=== PATIENT | female | born 1945 | race Two or more races ===

== ENCOUNTER 2019-02-10 23:09 | Emergency (ER) | payer OTHER ==
[2019-02-10 23:21] VITALS: BP 186/92; PULSE 71; TEMP 98.4; BMI 42.5
[2019-02-11] MEDS ORDERED: ACETAMINOPHEN 325 MG TABLET (FP) PO ONE (00:22)
[2019-02-11] MEDS ORDERED: morphine CARPU-JECT 4 MG/1 ML DISP.SYRIN IVPUSH ONE (00:29)
[2019-02-11] MEDS ORDERED: CLINDAMYCIN 600MG PREMIX IVPB 600 MG/50 ML BAG IVPB ONE ×2 (00:30→00:48)
--- NOTE | 2019-02-11 00:48 | PDOC ---
History of Present Illness <Praveena Limon - Last Filed: 02/11/19 01:37> - General History Source: Patient, Family Exam Limitations: No Limitations <Kriss Phan - Last Filed: 02/11/19 01:54> - General Chief Complaint: Pain, Acute Stated Complaint: LEFT LEG PAIN Time Seen by Provider: 02/10/19 23:57 Past History <Praveena Limon - Last Filed: 02/11/19 01:37> - Past Medical History Cardiac Disorders: Yes COPD: No Diabetes: Yes HTN: Yes Hypercholesterolemia: Yes - Surgical History Cardiac Surgery: Yes (CARDIAC CATH) - Immunization History Immunization Up to Date: Yes - Suicide/Smoking/Psychosocial Hx Smoking Status: No Smoking History: Former smoker Have you smoked in the past 12 months: No Number of Cigarettes Smoked Daily: 0 If you are a former smoker, when did you quit?: many years ago Information on smoking cessation initiated: No Hx Alcohol Use: No Drug/Substance Use Hx: No Substance Use Type: None Hx Substance Use Treatment: No <Kriss Phan - Last Filed: 02/11/19 01:54> - Past Medical History Allergies/Adverse Reactions: Allergies Allergy/AdvReac Type Severity Reaction Status Date / Time No Known Allergies Allergy Verified 02/10/19 23:12 Home Medications: Ambulatory Orders Amlodipine Besylate 10 mg PO DAILY 04/15/16 Atenolol [Tenormin -] 50 mg PO DAILY 04/15/16 Hydrochlorothiazide [Hctz -] 25 mg PO DAILY 04/15/16 Losartan Potassium 100 mg PO DAILY 04/15/16 Pantoprazole Sodium [Protonix] 40 mg PO DAILY #14 tablet 04/15/16 Metformin HCl [Glucophage] 500 mg PO DAILY 02/10/19 Clindamycin [Cleocin -] 300 mg PO Q6HPO #28 capsule 02/11/19 *Physical Exam - Vital Signs Last Vital Signs Temp Pulse Resp BP Pulse Ox 98.4 F 71 18 186/92 H 98 02/10/19 23:12 02/10/19 23:12 02/10/19 23:12 02/10/19 23:12 02/10/19 23:12 <Praveena Limon - Last Filed: 02/11/19 01:37> - Vital Signs Last Vital Signs Temp Pulse Resp BP Pulse Ox 98.4 F 71 18 186/92 H 98 02/10/19 23:12 02/10/19 23:12 02/10/19 23:12 02/10/19 23:12 02/10/19 23:12 - Physical Exam General Appearance: No: Apparent Distress Respiratory/Chest: positive: Lungs Clear, Normal Breath Sounds. negative: Respiratory Distress Cardiovascular: positive: Regular Rhythm, Regular Rate, S1, S2. negative: Murmur Extremity: positive: Other (LLE wrapped, on removal of dressing, noted with wound around lateral aspect of lower LLE, actively draining pus, no foul odor noted, no cold or increased warmth to extremities noted, LLE pulses intact) Integumentary: negative: Erythema, Mottled, Ecchymosis, Bruising Neurologic: positive: Alert, Normal Mood/Affect <Kriss Phan - Last Filed: 02/11/19 01:54> ED Treatment Course - LABORATORY CBC & Chemistry Diagram: 02/11/19 01:22 02/11/19 01:22 - ADDITIONAL ORDERS Additional order review: 02/11/19 01:22 RBC 4.70 MCV 87.8 MCHC 32.1 RDW 16.3 H MPV 9.9 Neutrophils % 57.4 D Lymphocytes % 30.2 D Monocytes % 9.0 Eosinophils % 2.3 D Basophils % 1.1 - Medications Given in the ED: ED Medications Discontinued Medications Generic Name Dose Route Start Last Admin Trade Name Lucienq PRN Reason Stop Dose Admin Acetaminophen 975 mg 02/11/19 00:22 02/11/19 01:30 Tylenol - PO 02/11/19 00:23 Not Given ONCE ONE Clindamycin Phosphate 600 mg in 50 mls @ 100 mls/hr 02/11/19 00:30 02/11/19 01:30 Cleocin 600 Mg Premix Ivpb - IVPB 02/11/19 00:59 100 mls/hr ONCE ONE Administration Morphine Sulfate 4 mg 02/11/19 00:29 02/11/19 01:28 Morphine Injection - IVPUSH 02/11/19 00:30 4 mg ONCE ONE Administration <Praveena Limon - Last Filed: 02/11/19 01:37> - LABORATORY CBC & Chemistry Diagram: 02/11/19 01:22 02/11/19 01:22 - RADIOLOGY Radiology Studies Ordered: Category Date Time Status LEG TIB/FIB-LEFT [RAD] Stat Radiology 02/11/19 00:23 Ordered <Kriss Phan - Last Filed: 02/11/19 01:54> Progress Note - Progress Note Progress Note: Patient Name: NINA THIS IS A PRELIMINARY REPORT FROM [facility] DATE OF SERVICE: 2019-02-11 00:32:02 IMAGES: 2 EXAM: LEG TIB/FIB-LEFT HISTORY: Left leg wound COMPARISON: None. FINDINGS: There is an old healed fracture of the distal shaft of the fibula. No acute fracture or dislocation Soft tissue swelling and subcutaneous edema Small soft tissue wound adjacent to the distal shaft of the fibula Calcaneal spurs THIS DOCUMENT HAS BEEN ELECTRONICALLY SIGNED <Praveena Limon - Last Filed: 02/11/19 01:37> Medical Decision Making - Medical Decision Making 73 y/o F hx of HTN, HLD, DM, CAD s/p cardiac cath presents with LLE pain. Patient has chronic LLE wound for around 1 year and was getting care for wound in [place]; patient returned from [place] this week and saw vascular, Dr. Alas, for the first time today. At clinic, patient had wound dressed and cultures done. Patient was sent home; no abx were given. Patient states she needs something for pain; states only taking Lyrica for pain. Granddaughter bought Tylenol but patent never took it. Patient states wound has been draining for around 4 months ; per granddaughter, patient was on abx while in [place] as well, but states that was back around Jul-July. Denies fever, sob, cp, abd pain, vomiting. Chronic diabetic wound D/W Dr. Alas - states no abx were prescribed given chronicity of wound; states dressing for wound can be loosened if causing discomfort and he can see patient in office in 2 days D/W Dr. Limon - will also check labs, get x-ray to r/o possible OM, give dose of IV Clindamycin x1 for now, IV Morphine 4 mg x1 for pain 02/11/19 00:44 LLE xray: There is an old healed fracture of the distal shaft of the fibula. No acute fracture or dislocation Soft tissue swelling and subcutaneous edema Small soft tissue wound adjacent to the distal shaft of the fibula Calcaneal spurs Labs sent and pending 02/11/19 01:35 CBC with WBC of 10.5 ESR, CRP and CMP still pending Signed out to Dr. Banegas 02/11/19 01:53 <Kriss Phan - Last Filed: 02/11/19 01:54> *DC/Admit/Observation/Transfer <Praveena Limon - Last Filed: 02/11/19 01:37> <Kriss Phan - Last Filed: 02/11/19 01:54> Diagnosis at time of Disposition: Leg wound, left Qualifiers: Encounter type: initial encounter Qualified Code(s): S81.802A - Unspecified open wound, left lower leg, initial encounter - Prescriptions Prescriptions: Clindamycin [Cleocin -] 300 mg PO Q6HPO #28 capsule
[2019-02-11] MEDS ORDERED: morphine SULFATE 4 MG/ML VIAL ONE (00:49)
[2019-02-11 01:31] LABS: BASO % 1.1 % (0-2.0); EOS % 2.3 % (0-4.5); HEMATOCRIT 41.3 % (32.4-45.2); HEMOGLOBIN 13.3 GM/dL (10.7-15.3); LYMPH % 30.2 % (8-40); MCH 28.2 pg (25.7-33.7); MCHC 32.1 g/dl (32.0-36.0); MEAN CELL VOLUME 87.8 fl (80-96); MEAN PLT VOLUME 9.9 fl (7.5-11.1); NEUT % 57.4 % (42.8-82.8); PLATELET COUNT 294 K/MM3 (134-434); RDW 16.3 % (11.6-15.6); WHITE BLOOD COUNT 10.5 K/mm3 (4.0-10.0)
--- NOTE | 2019-02-11 03:11 | PDOC ---
*Physical Exam - Vital Signs Last Vital Signs Temp Pulse Resp BP Pulse Ox 98.4 F 71 18 186/92 H 98 02/10/19 23:12 02/10/19 23:12 02/10/19 23:12 02/10/19 23:12 02/10/19 23:12 ED Treatment Course - LABORATORY CBC & Chemistry Diagram: 02/11/19 01:22 02/11/19 01:22 - ADDITIONAL ORDERS Additional order review: Laboratory Results 02/11/19 02/11/19 01:22 01:22 Sodium Cancelled Potassium Cancelled Chloride Cancelled Carbon Dioxide Cancelled Anion Gap Cancelled BUN Cancelled Creatinine Cancelled Est GFR (CKD-EPI)AfAm Cancelled Est GFR (CKD-EPI)NonAf Cancelled Random Glucose Cancelled Calcium Cancelled Total Bilirubin Cancelled AST Cancelled ALT Cancelled Alkaline Phosphatase Cancelled C-Reactive Protein Cancelled Total Protein Cancelled Albumin Cancelled 02/11/19 01:22 RBC 4.70 MCV 87.8 MCHC 32.1 RDW 16.3 H MPV 9.9 Neutrophils % 57.4 D Lymphocytes % 30.2 D Monocytes % 9.0 Eosinophils % 2.3 D Basophils % 1.1 - Medications Given in the ED: ED Medications Discontinued Medications Generic Name Dose Route Start Last Admin Trade Name Freq PRN Reason Stop Dose Admin Acetaminophen 975 mg 02/11/19 00:22 02/11/19 01:30 Tylenol - PO 02/11/19 00:23 Not Given ONCE ONE Clindamycin Phosphate 600 mg in 50 mls @ 100 mls/hr 02/11/19 00:30 02/11/19 01:30 Cleocin 600 Mg Premix Ivpb - IVPB 02/11/19 00:59 100 mls/hr ONCE ONE Administration Morphine Sulfate 4 mg 02/11/19 00:29 02/11/19 01:28 Morphine Injection - IVPUSH 02/11/19 00:30 4 mg ONCE ONE Administration Medical Decision Making - Medical Decision Making 02/11/19 03:11 Normal WBC count and normal sed rate; she will be sent home with abx; she will follow with her doc on Wednesday; wound cultures pending. *DC/Admit/Observation/Transfer Diagnosis at time of Disposition: Leg wound, left Qualifiers: Encounter type: initial encounter Qualified Code(s): S81.802A - Unspecified open wound, left lower leg, initial encounter - Discharge Dispostion Disposition: HOME Condition at time of disposition: Stable Decision to Admit order: No - Prescriptions Prescriptions: Clindamycin [Cleocin -] 300 mg PO Q6HPO #28 capsule - Referrals - Patient Instructions Printed Discharge Instructions: Skin Wound - Post Discharge Activity
[2019-02-11 03:41] LABS: BILIRUBIN,TOTAL 0.4 mg/dL (0.2-1); BLOOD UREA NITROGEN 25.4 mg/dL (7-18); CALCIUM 8.3 mg/dL (8.5-10.1); CREATININE 1.1 mg/dL (0.55-1.3); TOT PROT 7.1 g/dl (6.4-8.2)
[2019-02-11 03:42] LABS: POTASSIUM 5.7 mmol/L (3.5-5.1)
== END 2019-02-11 03:20 | disposition home or self-care (01) ==
LOC: JER 23:09
PROC: 3E03329 Introduction of Other Anti-infective into Peripheral Vein, Percutaneous Approach (ICD-10-PCS; principal; 2019-02-10)
PROC: 3E033NZ Introduction of Analgesics, Hypnotics, Sedatives into Peripheral Vein, Percutaneous Approach (ICD-10-PCS; 2019-02-10)
DX: S81.802A Unspecified open wound, left lower leg, initial encounter (principal); I25.10 Atherosclerotic heart disease of native coronary artery without angina pectoris; I10 Essential (primary) hypertension; Z95.5 Presence of coronary angioplasty implant and graft; E11.9 Type 2 diabetes mellitus without complications; Z79.84 Long term (current) use of oral hypoglycemic drugs; E78.00 Pure hypercholesterolemia, unspecified; Z87.891 Personal history of nicotine dependence; Z87.81 Personal history of (healed) traumatic fracture; X58.XXXA Exposure to other specified factors, initial encounter; Y93.89 Activity, other specified; Y92.89 Other specified places as the place of occurrence of the external cause; Y99.8 Other external cause status
CPT/HCPCS: 11042; 11045; 29581-LT; 36415; 73590-TC-LT-FY; 80053; 83036; 85025; 85651; 87070; 87186; 87205; 88304-TC; 96365; 96375; 99284-25; A4649; A6196

== ENCOUNTER 2019-02-15 14:52 | Observation (INO) | payer OTHER ==
--- NOTE | 2019-02-15 15:08 | PDOC ---
Rapid Medical Evaluation Chief Complaint: Chest Pain Time Seen by Provider: 02/15/19 15:01 Medical Evaluation: Allergies Allergy/AdvReac Type Severity Reaction Status Date / Time No Known Allergies Allergy Verified 02/10/19 23:12 02/15/19 15:05 Patient presents to ED with complaints of: intermittent midsternal chest pressure worse with movement, denies injury, sob, fever, sob, or cough patient on brief exam: vss, no reproducible cp, bp slightly elevated (took meds this am) Patient ordered for: cardiac w/u Patient to proceed to the ED Discharge Disposition - Diagnosis Chest pain Qualifiers: Chest pain type: unspecified Qualified Code(s): R07.9 - Chest pain, unspecified - Discharge Dispostion Condition at time of disposition: Guarded - Referrals - Patient Instructions - Post Discharge Activity
--- NOTE | 2019-02-15 15:22 | PDOC ---
History of Present Illness - General Chief Complaint: Chest Pain Stated Complaint: CHEST PAIN Time Seen by Provider: 02/15/19 15:01 - History of Present Illness Initial Comments: 02/15/19 16:36 73 year old woman with a medical history of HTN, HLD, DM, L calf diabetic foot ulcer and recent trip from who presents with central chest pain rated 2/10 constant since this AM nonradiating and worsening by movement. The patient denies any SOB, fever, recent illness, dysuria, heamturia, constipation. But she notes she had 1 day of loose stool today. She denies any other complaints ROS + chest pain all other is negative PE + occasional reproducibility of chest pain on chest wall palpation normal PE A/P labs, cxr, ekg ED Course CXR: cardiomegaly but no infiltrate or pleural effusion ekg: nsr Past History - Past Medical History Allergies/Adverse Reactions: Allergies Allergy/AdvReac Type Severity Reaction Status Date / Time No Known Allergies Allergy Verified 02/15/19 16:06 Home Medications: Ambulatory Orders Hydrochlorothiazide [Hctz -] 25 mg PO DAILY 04/15/16 Losartan Potassium 100 mg PO DAILY 04/15/16 Metformin HCl [Glucophage] PO BID 02/10/19 Cardiac Disorders: Yes COPD: No Diabetes: Yes HTN: Yes Hypercholesterolemia: Yes Other medical history: left leg ulcer - Surgical History Cardiac Surgery: Yes (CARDIAC CATH) - Immunization History Immunization Up to Date: Yes - Suicide/Smoking/Psychosocial Hx Smoking Status: No Smoking History: Former smoker Have you smoked in the past 12 months: No Number of Cigarettes Smoked Daily: 0 If you are a former smoker, when did you quit?: 2000 Information on smoking cessation initiated: No Hx Alcohol Use: No Drug/Substance Use Hx: No Substance Use Type: None Hx Substance Use Treatment: No *Physical Exam - Vital Signs Last Vital Signs Temp Pulse Resp BP Pulse Ox 98.4 F 83 19 173/98 H 99 02/15/19 15:02 02/15/19 15:02 02/15/19 15:02 02/15/19 15:02 02/15/19 15:02 Heart Score/ECG Review - History History: Slightly suspicious - Electrocardiogram EKG: Normal - Age Age: >/= 65 - Risk Factors Risk Factors Heart Score: Yes Hx Hypercholesterolemia, Yes Hx Hypertension, Yes Hx Diabetes Based on the list above the patient has:: >/=3 risk factors or Hx atherosclerotic disease - Troponin Troponin: </= normal limit - Score Heart Score - Total: 4 ED Treatment Course - LABORATORY CBC & Chemistry Diagram: 02/15/19 16:30 02/15/19 16:30 *DC/Admit/Observation/Transfer Diagnosis at time of Disposition: Chest pain - Referrals Referrals: Bina Luis MD [Primary Care Provider] - - Patient Instructions - Post Discharge Activity
[2019-02-15 16:11] LABS: EPI CELLS 6.8 /HPF (0-5/HPF); HYALINE CASTS 7 /lpf (0-8); URINE APPEARANCE CLOUDY; URINE BACTERIA 49.4 /hpf (NEGATIVE); URINE BILIRUBIN NEGATIVE (NEGATIVE); URINE COLOR YELLOW; URINE GLUCOSE (UA) NEGATIVE (NEGATIVE); URINE KETONE TRACE (NEGATIVE); URINE LEUK ESTERASE 1+ (NEGATIVE); URINE NITRITE NEGATIVE (NEGATIVE); URINE PROTEIN 1+ (NEGATIVE); URINE UROBILINOGEN 0.2 mg/dL (0.2-1.0); URINE WBC 6 /hpf (0-5)
--- NOTE | 2019-02-15 16:45 | PDOC ---
Documentation entered by Nasreen Jacobsen SCRIBE, acting as scribe for Cherelle Thorpe MD. Cherelle Thorpe MD: This documentation has been prepared by the Delmar ferguson Adrianna, SCRIBE, under my direction and personally reviewed by me in its entirety. I confirm that the documentation accurately reflects all work, treatment, procedures, and medical decision making performed by me. Attending Attestation - Resident Resident Name: MichelWanda - ED Attending Attestation I have performed the following: I have examined & evaluated the patient, The case was reviewed & discussed with the resident, I agree w/resident's findings & plan, Exceptions are as noted - HPI HPI: The patient is a 73 year old female, with a significant PMH of HTN, HLD, and DM , who presents to the ED for evaluation of chest pain for one day. Patient complains of 2/10 chest pain that is exacerbated with leaning forward. Patient is from the and came here one week ago for hyperbaric treatment for a DM left calf ulcer (on day 3). No fever, chills, nausea, vomit, diarrhea, constipation, dysuria, hematuria. Allergies: NKA, NKDA Surgical History: Cardiac cath Social History: Former smoker (quit 18 years ago). Denies EtOH or illicit drug use. PCP: Dr. Luis - Physicial Exam PE: GENERAL: The patient is in no acute distress. ENT: Ears normal, nares patent, oropharynx clear without exudates. Moist mucous membranes. NECK: Normal range of motion, supple, no nuchal rigidity LUNGS: Breath sounds equal, clear to auscultation bilaterally. No wheezes, and no crackles. HEART: Regular rate and rhythm, normal S1 and S2 without murmur, rub or gallop. ABDOMEN: Soft, nontender, normoactive bowel sounds. No guarding, no rebound. No masses palpable. EXTREMITIES: Normal range of motion, no edema. NEUROLOGICAL: Cranial nerves II through XII grossly intact. Normal speech. No focal neurological deficits. SKIN: Warm, Dry, normal turgor, no rashes or lesions noted. - Medical Decision Making 02/15/19 17:51 Laboratory Tests 02/15/19 02/15/19 02/15/19 15:48 16:30 16:30 WBC 11.1 H Hgb 13.6 Hct 42.4 Plt Count 318 INR BUN Creatinine Creatine Kinase 73 Troponin I < 0.02 B-Natriuretic Peptide Urine Blood 2+ H Urine Nitrite Negative Ur Leukocyte Esterase 1+ H 02/15/19 02/15/19 16:30 16:30 WBC Hgb Hct Plt Count INR 1.00 BUN 29.6 H Creatinine 1.3 Creatine Kinase Troponin I B-Natriuretic Peptide 278.1 H Urine Blood Urine Nitrite Ur Leukocyte Esterase EKG: SR rate of 79 bpm, LAD, no st elevation or depression, t waves inverted v4- v6 Initial trop negative which is re assuring Given recent travel CTA pending Given age and risk factors would place on observation CTA pending Signed out to overnight team
[2019-02-15 17:09] LABS: BASO % 0.8 % (0-2.0); HEMATOCRIT 42.4 % (32.4-45.2); HEMOGLOBIN 13.6 GM/dL (10.7-15.3); LYMPH % 24.1 % (8-40); MEAN CELL VOLUME 87.5 fl (80-96); MONO % 8.3 % (3.8-10.2); NEUT % 65.8 % (42.8-82.8); PLATELET COUNT 318 K/MM3 (134-434); RBC 4.84 M/mm3 (3.60-5.2); RDW 16.8 % (11.6-15.6); WHITE BLOOD COUNT 11.1 K/mm3 (4.0-10.0)
[2019-02-15 17:24] LABS: URINE RBC 17.6 /hpf (0-4)
[2019-02-15 17:29] LABS: ALBUMIN 3.7 g/dl (3.4-5.0); BILIRUBIN,TOTAL 0.4 mg/dL (0.2-1); BLOOD UREA NITROGEN 29.6 mg/dL (7-18); CALCIUM 9.9 mg/dL (8.5-10.1); CREATININE 1.3 mg/dL (0.55-1.3); MAGNESIUM 2.2 mg/dL (1.8-2.4); N-TERMINAL BNP 278.1 pg/ml (5-125); POTASSIUM 4.8 mmol/L (3.5-5.1); PROTHROMBIN TIME (PATIENT) 11.8 SEC (9.7-13.0); TOT PROT 8.4 g/dl (6.4-8.2)
--- NOTE | 2019-02-15 19:22 | PDOC ---
*Physical Exam - Vital Signs Last Vital Signs Temp Pulse Resp BP Pulse Ox 98.4 F 83 19 173/98 H 99 02/15/19 15:02 02/15/19 15:02 02/15/19 15:02 02/15/19 15:02 02/15/19 15:02 ED Treatment Course - LABORATORY CBC & Chemistry Diagram: 02/15/19 16:30 02/15/19 16:30 - ADDITIONAL ORDERS Additional order review: Laboratory Results 02/15/19 02/15/19 02/15/19 16:30 16:30 16:30 PT with INR 11.80 INR 1.00 D-Dimer 728 H Sodium 138 Potassium 4.8 Chloride 98 Carbon Dioxide 33 H Anion Gap 6 L BUN 29.6 H Creatinine 1.3 Est GFR (CKD-EPI)AfAm 47.46 Est GFR (CKD-EPI)NonAf 40.95 Random Glucose 184 H Calcium 9.9 Magnesium 2.2 Total Bilirubin 0.4 AST 33 ALT 19 Alkaline Phosphatase 84 Creatine Kinase Troponin I B-Natriuretic Peptide 278.1 H Total Protein 8.4 H Albumin 3.7 Lipase 117 Urine Color Urine Appearance Urine pH Ur Specific [place] Urine Protein Urine Glucose (UA) Urine Ketones Urine Blood Urine Nitrite Urine Bilirubin Urine Urobilinogen Ur Leukocyte Esterase Urine WBC (Auto) Urine RBC (Auto) Urine Casts (Auto) U Epithel Cells (Auto) Urine Bacteria (Auto) 02/15/19 02/15/19 16:30 15:48 PT with INR INR D-Dimer Sodium Potassium Chloride Carbon Dioxide Anion Gap BUN Creatinine Est GFR (CKD-EPI)AfAm Est GFR (CKD-EPI)NonAf Random Glucose Calcium Magnesium Total Bilirubin AST ALT Alkaline Phosphatase Creatine Kinase 73 Troponin I < 0.02 B-Natriuretic Peptide Total Protein Albumin Lipase Urine Color Yellow Urine Appearance Cloudy Urine pH 5.0 Ur Specific [place] 1.026 Urine Protein 1+ H Urine Glucose (UA) Negative Urine Ketones Trace H Urine Blood 2+ H Urine Nitrite Negative Urine Bilirubin Negative Urine Urobilinogen 0.2 Ur Leukocyte Esterase 1+ H Urine WBC (Auto) 6 Urine RBC (Auto) 17.6 Urine Casts (Auto) 7 U Epithel Cells (Auto) 6.8 Urine Bacteria (Auto) 49.4 02/15/19 16:30 RBC 4.84 MCV 87.5 MCHC 32.0 RDW 16.8 H MPV 10.0 Neutrophils % 65.8 Lymphocytes % 24.1 D Monocytes % 8.3 Eosinophils % 1.0 Basophils % 0.8 Medical Decision Making - Medical Decision Making Patient signed out by Dr. Pearson 73 year old woman with a medical history of HTN, HLD, DM, L calf diabetic foot ulcer and recent trip [place] who presents with central chest pain rated 2/10 constant since this AM nonradiating and worsening by movement. HEART score of 4 Pending CTA PCP is Dr. Luis 02/15/19 19:22 Patient sent back from CT scan without imaging as she has elevated BUN, 29.6, Cr =1.3, GFR= 40 We will treat empirically with lovenox, perform duplex bilaterally, and have patient admitted 02/15/19 20:10 DVT negative study, as per radiology: "Real time and doppler evaluation of both lower extremities demonstrates the following: There is no evidence of deep venous thrombosis within the common, deep and superficial femoral veins, as well as the popliteal and posterior tibial veins. The greater saphenous veins are also patent. These veins are fully compressible, as well. IMPRESSION: No evidence of deep venous thrombosis. " 02/15/19 21:36 CXR: "A single frontal portable projection of the chest at 3:22 PM is submitted. The heart size is enlarged. The lung avalos are free of pulmonary infiltrates or pleural effusions. There is tortuosity and calcification of the thoracic aorta and degenerative arthritis of the thoracic spine. IMPRESSION: Cardiomegaly, no acute disease. " 02/15/19 21:37 Microblog is not working. Phone call to Dr. Dunn Discussed case with Dr. Dunn who accepted patient for admission under Dr. Goode 02/15/19 22:30 Patient receives Pregabalin 75mg at home for pain; ordered 02/15/19 22:39 *DC/Admit/Observation/Transfer Diagnosis at time of Disposition: Chest pain Qualifiers: Chest pain type: unspecified Qualified Code(s): R07.9 - Chest pain, unspecified - Discharge Dispostion Condition at time of disposition: Guarded Decision to Admit order: Yes - Referrals - Patient Instructions - Post Discharge Activity
[2019-02-15] MEDS ORDERED: ENOXAPARIN NA (PORCINE) 100 MG/1 ML DISP.SYRIN SQ ONE ×2 (20:12→20:47)
[2019-02-15] MEDS ORDERED: PREGABALIN 75 MG CAPSULE PO ONE (22:38)
[2019-02-15] MEDS ORDERED: PREGABALIN 25 MG CAPSULE ONE (23:16)
--- NOTE | 2019-02-16 00:06 | HP ---
CHIEF COMPLAINT: Chest pain since this morning PCP: HISTORY OF PRESENT ILLNESS: The patient is Luxembour[place] speaking, and her daughter was present at the bedside to assist with translation. This is a 73 year old female with PMH significant for HTN, DM, and HLD. She presented to the ER with complaints of sudden onset, sub sternal chest pain which began at approximately 10AM this morning. She describes it as a tightness with an intensity of 2/10, constant in nature, non-radiating, aggravated by movement and without any recognizable alleviating factors. The pain subsided spontaneously around 10PM. She states that she had 2 loose brown bowel movement , in the middle of the night, and the other this morning. There was no associated melena, hematochezia, or abdominal pain. She reports no associated fever, chills, dizziness, SOB, palpitations, nausea, vomiting, cough, constipation, dysuria, urgency, or hematuria. She had an exercise stress test and an echo done last year, both of which she reports were normal. She resides in the [facility], but has annual medical checkups in the [place]. [place] one [place] ago and is currently receiving hyperbaric treatment for a left calf ulcer and has completed 3 days. ER course was notable for: (1) BUN Cr 29.6/1.3 (unable to do CTA, Lovenox 99mg given) (2) EKG shows no ST changes, TWI in V4-V6 (3) Trop 0.02 Recent Travel: From last week PAST MEDICAL HISTORY: HTN: Recently started on Losartan DM: has 2 wounds, one on lower calf, and one on the lateral malleolus of the left lef PAST SURGICAL HISTORY: C Section over 20 years ago Social History: Smoking: Quit 20 years ago, smoked 3ppd for 30 years before that Alcohol: denies Drugs: strongly denies Family History: Mother had stroke 3 siblings have DM No hx of CA or ID Allergies No Known Allergies Allergy (Verified 02/15/19 16:06) HOME MEDICATIONS: Home Medications Medication Instructions Recorded Hydrochlorothiazide [Hctz -] 25 mg PO DAILY 04/15/16 Losartan Potassium 100 mg PO DAILY 04/15/16 Metformin HCl [Glucophage] PO BID 02/10/19 REVIEW OF SYSTEMS CONSTITUTIONAL: Absent: fever, chills, diaphoresis, generalized weakness, malaise, loss of appetite, weight change HEENT: Absent: rhinorrhea, nasal congestion, throat pain, throat swelling, difficulty swallowing, mouth swelling, ear pain, eye pain, visual changes CARDIOVASCULAR: chest pain Absent: chest pain, syncope, palpitations, irregular heart rate, lightheadedness , peripheral edema RESPIRATORY: Absent: cough, shortness of breath, dyspnea with exertion, orthopnea, wheezing, stridor, hemoptysis GASTROINTESTINAL: Absent: abdominal pain, abdominal distension, nausea, vomiting, diarrhea, constipation, melena, hematochezia GENITOURINARY: Absent: dysuria, frequency, urgency, hesitancy, hematuria, flank pain, genital pain MUSCULOSKELETAL: Absent: myalgia, arthralgia, joint swelling, back pain, neck pain SKIN: Absent: rash, itching, pallor HEMATOLOGIC/IMMUNOLOGIC: Absent: easy bleeding, easy bruising, lymphadenopathy, frequent infections ENDOCRINE: Absent: unexplained weight gain, unexplained weight loss, heat intolerance, cold intolerance NEUROLOGIC: Absent: headache, focal weakness or paresthesias, dizziness, unsteady gait, seizure, mental status changes, bladder or bowel incontinence PSYCHIATRIC: Absent: anxiety, depression, suicidal or homicidal ideation, hallucinations. PHYSICAL EXAMINATION Vital Signs - 24 hr 02/15/19 02/15/19 15:02 20:10 Temperature 98.4 F Pulse Rate 83 Pulse Rate [ 89 Left Radial] Respiratory 19 18 Rate Blood Pressure 173/98 H Blood Pressure 150/80 [Right Arm] O2 Sat by Pulse 99 96 Oximetry (%) GENERAL: AOx3 HEAD: Normal with no signs of trauma. EYES: Pupils equal, round and reactive to light, extraocular movements intact, sclera anicteric, conjunctiva clear. No lid lag. EARS, NOSE, THROAT: Ears normal, nares patent, oropharynx clear without exudates. Moist mucous membranes. NECK: Normal range of motion, supple without lymphadenopathy, JVD, or masses. LUNGS: Breath sounds equal, clear to auscultation bilaterally. No wheezes, and no crackles. No accessory muscle use. HEART: Regular rate and rhythm, normal S1 and S2 without murmur, rub or gallop. ABDOMEN: Soft, nontender, not distended, normoactive bowel sounds, no guarding, no rebound, no masses. No hepatomegaly or splenomegaly. MUSCULOSKELETAL: limited range of motion due to body habitus UPPER EXTREMITIES: 2+ pulses, warm, well-perfused. No cyanosis. No clubbing. No peripheral edema. LOWER EXTREMITIES: Right: trace pitting edema, no wounds Left: Lower leg bandaged, non pitting edema, non tender NEUROLOGICAL: Cranial nerves II-XII intact. Normal speech. Normal gait. PSYCHIATRIC: Cooperative. Good eye contact. Appropriate mood and affect. SKIN: Warm, dry, normal turgor, no rashes or lesions noted, normal capillary refill. Laboratory Results - last 24 hr 02/15/19 02/15/19 02/15/19 15:48 16:30 16:30 WBC 11.1 H RBC 4.84 Hgb 13.6 Hct 42.4 MCV 87.5 MCH 28.0 MCHC 32.0 RDW 16.8 H Plt Count 318 MPV 10.0 Absolute Neuts (auto) 7.3 Neutrophils % 65.8 Lymphocytes % 24.1 D Monocytes % 8.3 Eosinophils % 1.0 Basophils % 0.8 Nucleated RBC % 0 PT with INR INR D-Dimer Sodium Potassium Chloride Carbon Dioxide Anion Gap BUN Creatinine Est GFR (CKD-EPI)AfAm Est GFR (CKD-EPI)NonAf Random Glucose Calcium Magnesium Total Bilirubin AST ALT Alkaline Phosphatase Creatine Kinase 73 Troponin I < 0.02 B-Natriuretic Peptide Total Protein Albumin Lipase Urine Color Yellow Urine Appearance Cloudy Urine pH 5.0 Ur Specific [place] 1.026 Urine Protein 1+ H Urine Glucose (UA) Negative Urine Ketones Trace H Urine Blood 2+ H Urine Nitrite Negative Urine Bilirubin Negative Urine Urobilinogen 0.2 Ur Leukocyte Esterase 1+ H Urine WBC (Auto) 6 Urine RBC (Auto) 17.6 Urine Casts (Auto) 7 U Epithel Cells (Auto) 6.8 Urine Bacteria (Auto) 49.4 02/15/19 02/15/19 02/15/19 16:30 16:30 16:30 WBC RBC Hgb Hct MCV MCH MCHC RDW Plt Count MPV Absolute Neuts (auto) Neutrophils % Lymphocytes % Monocytes % Eosinophils % Basophils % Nucleated RBC % PT with INR 11.80 INR 1.00 D-Dimer 728 H Sodium 138 Potassium 4.8 Chloride 98 Carbon Dioxide 33 H Anion Gap 6 L BUN 29.6 H Creatinine 1.3 Est GFR (CKD-EPI)AfAm 47.46 Est GFR (CKD-EPI)NonAf 40.95 Random Glucose 184 H Calcium 9.9 Magnesium 2.2 Total Bilirubin 0.4 AST 33 ALT 19 Alkaline Phosphatase 84 Creatine Kinase Troponin I B-Natriuretic Peptide 278.1 H Total Protein 8.4 H Albumin 3.7 Lipase 117 Urine Color Urine Appearance Urine pH Ur Specific [place] Urine Protein Urine Glucose (UA) Urine Ketones Urine Blood Urine Nitrite Urine Bilirubin Urine Urobilinogen Ur Leukocyte Esterase Urine WBC (Auto) Urine RBC (Auto) Urine Casts (Auto) U Epithel Cells (Auto) Urine Bacteria (Auto) 02/15/19 22:48 WBC RBC Hgb Hct MCV MCH MCHC RDW Plt Count MPV Absolute Neuts (auto) Neutrophils % Lymphocytes % Monocytes % Eosinophils % Basophils % Nucleated RBC % PT with INR INR D-Dimer Sodium Potassium Chloride Carbon Dioxide Anion Gap BUN Creatinine Est GFR (CKD-EPI)AfAm Est GFR (CKD-EPI)NonAf Random Glucose Calcium Magnesium Total Bilirubin AST ALT Alkaline Phosphatase Creatine Kinase Troponin I < 0.02 B-Natriuretic Peptide Total Protein Albumin Lipase Urine Color Urine Appearance Urine pH Ur Specific [place] Urine Protein Urine Glucose (UA) Urine Ketones Urine Blood Urine Nitrite Urine Bilirubin Urine Urobilinogen Ur Leukocyte Esterase Urine WBC (Auto) Urine RBC (Auto) Urine Casts (Auto) U Epithel Cells (Auto) Urine Bacteria (Auto) ASSESSMENT/PLAN: This is a 73 year old female with PMH significant for HTN, DM, and HLD. She presented to the ER with complaints of sudden onset, sub sternal chest pain which began at approximately 10AM this morning. #Atypical chest pain - Now resolved - EKG shows TWI in V4-V6, no ST changes - Trop negative x2 - Lower extremity doppler showed no signs of DVT - Lovenox 99mg SQ given in ER, WELLS score 0, low suspicion of PE - Tele obs - Echo ordered - May administer nitroglycerin if pain re-appears #Lower extremity ulcer - Vascular consult placed #Hx of DM - Glucose 184 - BGM ACHS - Novolog SS #Hx of HLD - Continue home meds Lipitor 20mg after confirming meds #Hx of HTN - Continue home meds Irbesartan #FEN - Mg, Phos ordered - Diabetic diet #DVT PE - Heparin 5000 SQ Visit type - Emergency Visit Emergency Visit: Yes ED Registration Date: 02/16/19 Care time: The patient presented to the Emergency Department on the above date and was hospitalized for further evaluation of their emergent condition. - New Patient This patient is new to me today: Yes Date on this admission: 02/16/19 - Critical Care Critical Care patient: No ATTENDING PHYSICIAN STATEMENT I saw and evaluated the patient. I reviewed the resident's note and discussed the case with the resident. I agree with the resident's findings and plan as documented. SUBJECTIVE: OBJECTIVE: ASSESSMENT AND PLAN:
[2019-02-16 03:28] VITALS: BMI 41.0
[2019-02-16] MEDS: ACETAMINOPHEN 325 MG TABLET (FP) PO PRN (04:02)
[2019-02-16] MEDS: INSULIN SLIDING SCALE (NOVOLOG) 1 VIAL SQ SCH ×4 (06:55→22:01)
--- NOTE | 2019-02-16 07:26 | PN ---
Teaching Attending Note Name of Resident: Wang Morin ATTENDING PHYSICIAN STATEMENT I saw and evaluated the patient. I reviewed the resident's note and discussed the case with the resident. I agree with the resident's findings and plan as documented. SUBJECTIVE: 73 year old woman with HTN, DM, former smoker, obese, venous stasis ulcer with vague history of chest pain which started 02/15 in am. No sob or exertional angina. OBJECTIVE: Last Vital Signs Temp Pulse Resp BP Pulse Ox 98.0 F 87 20 121/91 96 02/16/19 02:00 02/16/19 05:00 02/16/19 05:00 02/16/19 05:00 02/16/19 02:00 General- nad, aaox3 heent -nad neck supple cv-s1+s2+rrr chest clear ext - left leg lateral ulcer about 5 x5 cm Abnormal Lab Results 02/15/19 02/15/19 02/15/19 15:48 16:30 16:30 WBC 11.1 H RDW 16.8 H D-Dimer Carbon Dioxide 33 H Anion Gap 6 L BUN 29.6 H Random Glucose 184 H B-Natriuretic Peptide 278.1 H Total Protein 8.4 H Urine Protein 1+ H Urine Ketones Trace H Urine Blood 2+ H Ur Leukocyte Esterase 1+ H 02/15/19 16:30 WBC RDW D-Dimer 728 H Carbon Dioxide Anion Gap BUN Random Glucose B-Natriuretic Peptide Total Protein Urine Protein Urine Ketones Urine Blood Ur Leukocyte Esterase ekg reviewed ASSESSMENT AND PLAN: chest pain- atypical, negative trop x2. Now resolved. Do not suspect PE - Wells PE score of 0. -tele-obs -trend trops -echo -cardiac stress test as outpatient -ngl if pain #Lower extremity ulcer - clean bases, does not appear infected -wound care -vascular surgery dvt ppx -heparin sc
[2019-02-16 08:14] LABS: PHOSPHOROUS 3.5 mg/dL (2.5-4.9)
[2019-02-16] MEDS ORDERED: HYDROCHLOROTHIAZIDE 25 MG TABLET (FP) PO SCH (10:00)
[2019-02-16] MEDS: ASPIRIN 81 MG CHEWABLE TABLETS PO SCH (10:08)
[2019-02-16] MEDS: LOSARTAN POTASSIUM 50 MG TABLET (FP) PO SCH (10:08)
[2019-02-16] MEDS: PREGABALIN 25 MG CAPSULE PO SCH ×2 (10:08→21:46)
[2019-02-16] MEDS: HYDROCHLOROTHIAZIDE 25 MG TABLET (FP) PO SCH (10:08)
--- NOTE | 2019-02-16 14:09 | EKG ---
Test Reason : Blood Pressure : / mmHG Vent. Rate : 079 BPM Atrial Rate : 079 BPM P-R Int : 156 ms QRS Dur : 088 ms QT Int : 394 ms P-R-T Axes : -04 -39 159 degrees QTc Int : 451 ms SINUS RHYTHM WITH PREMATURE ATRIAL COMPLEXES LEFT AXIS DEVIATION SEPTAL INFARCT (CITED ON OR BEFORE 19-SEP-2008) POSSIBLE LATERAL INFARCT (CITED ON OR BEFORE 19-SEP-2008) ABNORMAL ECG WHEN COMPARED WITH ECG OF 15-APR-2016 14:08, SIGNIFICANT CHANGES HAVE OCCURRED Confirmed by SANDIP CHE MD ([id number]) on 02/16/2019 2:08:54 PM Referred By: Confirmed By:SANDIP CHE MD
--- NOTE | 2019-02-16 15:05 | ECHO ---
Name: LOLIS SOTO RAMONE JACOBS Exam:Adult Echocardiogram Study Date: 02/16/2019 11:17 AM Age: 73 yrs Reason For Study: Chest pain Height: 61 in Weight: 217 lb BSA: 2.0 m2 MMode/2D Measurements & Calculations IVSd: 1.0 cm Ao root diam: 3.7 cm LVIDd: 5.0 cm LVIDs: 3.3 cm LVPWd: 0.88 cm EDV(Teich): 116.3 ml LVOT diam: 2.1 cm ESV(Teich): 45.3 ml Doppler Measurements & Calculations MV E max kyle: 38.5 cm/sec Ao V2 max: 126.8 cm/sec MV A max kyle: 82.9 cm/sec Ao max P.4 mmHg MV E/A: 0.46 Ao V2 mean: 96.6 cm/sec MV dec time: 0.15 sec Ao mean P.1 mmHg Ao V2 VTI: 26.2 cm GLORIA(I,D): 1.9 cm2 AI P1/2t: 550.6 msec GLORIA(V,D): 2.1 cm2 AI max kyle: 439.0 cm/sec LV V1 max P.3 mmHg AI max P.3 mmHg LV V1 mean P.4 mmHg AI dec slope: 233.5 cm/sec2 LV V1 max: 75.6 cm/sec LV V1 mean: 57.7 cm/sec LV V1 VTI: 14.0 cm SV(LVOT): 49.9 ml TR max kyle: 189.4 cm/sec TR max P.9 mmHg Med Peak E' Kyle: 2.6 cm/sec Med E/e': 14.6 Lat Peak E' Kyle: 3.4 cm/sec Lat E/e': 11.3 Procedure A complete two-dimensional transthoracic echocardiogram was performed (2D, M-mode, Doppler and color flow Doppler). Left Ventricle The left ventricular size, thickness and function are normal. The left ventricular ejection fraction is normal. Ejection Fraction = 55-60%. The left ventricular wall motion is normal. Right Ventricle The right ventricle is normal in size and function. Atria Normal left and right atrial size and function. Mitral Valve There is no mitral regurgitation noted. Tricuspid Valve No tricuspid regurgitation. There was insufficient TR detected to calculate RV systolic pressure. Aortic Valve No hemodynamically significant valvular aortic stenosis. Trace aortic regurgitation. Pulmonic Valve There is no pulmonic valvular regurgitation. Great Vessels The aortic root is normal size. Pericardium/Pleura There is no pericardial effusion. Interpretation Summary The left ventricular size, thickness and function are normal The right ventricle is normal in size and function. Trace aortic regurgitation. MD Kostas Gallagher 02/16/2019 03:05 PM
[2019-02-16] MEDS: HEPARIN NA (PORCINE) 5,000 UNITS/ML 1ML VIAL SQ SCH ×3 (15:24→21:46)
--- NOTE | 2019-02-16 17:02 | PN ---
Teaching Attending Note Name of Resident: Papo Baker ATTENDING PHYSICIAN STATEMENT I saw and evaluated the patient. I reviewed the resident's note and discussed the case with the resident. I agree with the resident's findings and plan as documented. SUBJECTIVE:c/o Leg pain. states she was bitten by her cat last year and never healed. had CP yesterday that resolved upon arrival to the Er. no assoc symptoms. started at rest. denies Cp, SOB,f ever, chills, cough, hemoptysis. has been treated with multiple abx courses for leg infection in past but does not recall names OBJECTIVE: Last Vital Signs Temp Pulse Resp BP Pulse Ox 98 F 88 18 160/88 96 02/16/19 08:14 02/16/19 08:14 02/16/19 08:14 02/16/19 08:14 02/16/19 02:00 General NAD CV S1 S2 RRR no murmur/rub/gallop Lungs CTA b/l no wheezing/rales/rhonchi Extremities RLE 8cm oblong well demarcated beefy ulcer with green discharge. area is tender some mild swelling ASSESSMENT AND PLAN: 73yo F wtih PMH HTN, [place] and came to ER c/o CP and found to have RLE ulcer 1. CP- was concern for PE in the ER given recent flight with elevated ddimer. unable to do CTA due to GIOVANA. doppler negative. symptoms have resolved. low suspicion for PE. cardiac enzymes x2. echo pending. had neg stress test last year. can f/u with cardio for workup as outpatient 2. GIOVANA- likely dehydration. IVF. avoid nephrotoxic agents 3. Chronic RLE ulcer- was seen in wound care clinic last week and ER for pain. was given clindamycin by ER [facility] [employer]. Wcx showing polymicrobial enterococcus and psuedomonas. has minimal leukocytosis. will consult ID if requires abx. vascular surgery consult if anyhting to do in hospital or requires further workup. can possible d/c on home abx 4. possible d/c home with po abx if cleared by vascular and ID
--- NOTE | 2019-02-16 17:07 | PN ---
Physical Exam: SUBJECTIVE: 73 y/o female with PMH DM, HTN, HLD whom came to ED c/o CP and RIGHT lower leg pain. CP was worked up and trop NEG x2, EKG with some t wave inversions, and h/o neg stress test last year. This morning the pt states that her chest pain was not a primary concern but believed she should get examined just in case; she expressed awareness of atypical presentation of KS in females. Today she does NOT have any chest pain. She denies SOB and palpitations. She states that the primary reason she wanted to come the hospital is her RIGHT LE ulcer. She says approximately 10 months to 1 year ago her house cat bit (not scratched) the posterior aspect of her RIGHT less; at the Achilles tendon. She says a small wound failed to heal over this time. She is a known pt to the vascular surgery service. Today the pain is located at the lesion site, constant , burning, nonradiating, and currently 6/10. She denies NVFD. OBJECTIVE: Vital Signs Period Temp Pulse Resp BP Sys/Elliott Pulse Ox Last 24 Hr 98 F-98.0 F 81-89 18-20 121-160/77-91 96-96 GENERAL: The patient is awake, alert, and fully oriented, in no acute distress. Green[place]ic speaking only. HEAD: Normal with no signs of trauma. EYES: PERRL, extraocular movements intact, sclera anicteric, conjunctiva clear. No ptosis. ENT: Ears normal, nares patent, oropharynx clear without exudates, moist mucous membranes. NECK: Trachea midline, full range of motion, supple. LUNGS: Breath sounds equal, clear to auscultation bilaterally, no wheezes, no crackles, no accessory muscle use. HEART: Regular rate and rhythm, S1, S2 without murmur, rub or gallop. ABDOMEN: Obese, soft, nontender, nondistended, normoactive bowel sounds, no guarding, no rebound, no hepatosplenomegaly, no masses. EXTREMITIES: 2+ pulses, warm, well-perfused, no edema. NEUROLOGICAL: Cranial nerves II through XII grossly intact. Normal speech, gait not observed. PSYCH: Normal mood, normal affect. SKIN: 8x5cm ovoid lesion on posterior RIGHT LE + purulent, green dc, erythematous, warm. Warm, dry, normal turgor, no rashes noted Laboratory Results - last 24 hr 02/15/19 02/15/19 02/15/19 15:48 16:30 16:30 WBC 11.1 H RBC 4.84 Hgb 13.6 Hct 42.4 MCV 87.5 MCH 28.0 MCHC 32.0 RDW 16.8 H Plt Count 318 MPV 10.0 Absolute Neuts (auto) 7.3 Neutrophils % 65.8 Lymphocytes % 24.1 D Monocytes % 8.3 Eosinophils % 1.0 Basophils % 0.8 Nucleated RBC % 0 PT with INR INR D-Dimer Sodium Potassium Chloride Carbon Dioxide Anion Gap BUN Creatinine Est GFR (CKD-EPI)AfAm Est GFR (CKD-EPI)NonAf POC Glucometer Random Glucose Calcium Phosphorus Magnesium Total Bilirubin AST ALT Alkaline Phosphatase Creatine Kinase 73 Troponin I < 0.02 B-Natriuretic Peptide Total Protein Albumin Lipase Urine RBC (Auto) 17.6 02/15/19 02/15/19 02/15/19 16:30 16:30 16:30 WBC RBC Hgb Hct MCV MCH MCHC RDW Plt Count MPV Absolute Neuts (auto) Neutrophils % Lymphocytes % Monocytes % Eosinophils % Basophils % Nucleated RBC % PT with INR 11.80 INR 1.00 D-Dimer 728 H Sodium 138 Potassium 4.8 Chloride 98 Carbon Dioxide 33 H Anion Gap 6 L BUN 29.6 H Creatinine 1.3 Est GFR (CKD-EPI)AfAm 47.46 Est GFR (CKD-EPI)NonAf 40.95 POC Glucometer Random Glucose 184 H Calcium 9.9 Phosphorus Magnesium 2.2 Total Bilirubin 0.4 AST 33 ALT 19 Alkaline Phosphatase 84 Creatine Kinase Troponin I B-Natriuretic Peptide 278.1 H Total Protein 8.4 H Albumin 3.7 Lipase 117 Urine RBC (Auto) 02/15/19 02/16/19 02/16/19 22:48 06:20 06:30 WBC RBC Hgb Hct MCV MCH MCHC RDW Plt Count MPV Absolute Neuts (auto) Neutrophils % Lymphocytes % Monocytes % Eosinophils % Basophils % Nucleated RBC % PT with INR INR D-Dimer Sodium Potassium Chloride Carbon Dioxide Anion Gap BUN Creatinine Est GFR (CKD-EPI)AfAm Est GFR (CKD-EPI)NonAf POC Glucometer 172 Random Glucose Calcium Phosphorus 3.5 Magnesium 2.0 Total Bilirubin AST ALT Alkaline Phosphatase Creatine Kinase Troponin I < 0.02 < 0.02 B-Natriuretic Peptide Total Protein Albumin Lipase Urine RBC (Auto) 02/16/19 12:29 WBC RBC Hgb Hct MCV MCH MCHC RDW Plt Count MPV Absolute Neuts (auto) Neutrophils % Lymphocytes % Monocytes % Eosinophils % Basophils % Nucleated RBC % PT with INR INR D-Dimer Sodium Potassium Chloride Carbon Dioxide Anion Gap BUN Creatinine Est GFR (CKD-EPI)AfAm Est GFR (CKD-EPI)NonAf POC Glucometer 151 Random Glucose Calcium Phosphorus Magnesium Total Bilirubin AST ALT Alkaline Phosphatase Creatine Kinase Troponin I B-Natriuretic Peptide Total Protein Albumin Lipase Urine RBC (Auto) Active Medications Acetaminophen (Tylenol -) 650 mg PO Q6H PRN PRN Reason: Fever Last Admin: 02/16/19 04:02 Dose: 650 mg Aspirin (Asa -) 81 mg PO DAILY [facility] Last Admin: 02/16/19 10:08 Dose: 81 mg Atorvastatin Calcium (Lipitor -) 20 mg PO HS [facility] Last Admin: 02/16/19 21:46 Dose: 20 mg Heparin Sodium (Porcine) (Heparin -) 5,000 unit SQ TID [facility] Last Admin: 02/16/19 21:46 Dose: 5,000 unit Hydrochlorothiazide (Hctz -) 25 mg PO DAILY [facility] Last Admin: 02/16/19 10:08 Dose: 25 mg Insulin Aspart (Novolog Vial Sliding Scale -) 1 vial SQ ACHS [facility]; Protocol Last Admin: 02/16/19 22:01 Dose: 2 unit Losartan Potassium (Cozaar -) 100 mg PO DAILY [facility] Last Admin: 02/16/19 10:08 Dose: 100 mg Pregabalin (Lyrica -) 25 mg PO BID [facility] Last Admin: 02/16/19 21:46 Dose: 25 mg ASSESSMENT/PLAN: 73 y/o female with PMH DM, HTN, HLD whom came to ED c/o CP and RIGHT lower leg pain. CP was worked up and trop NEG x2, EKG with some t wave inversions, and h/ o neg stress test last year. # RLE cellulitis and resultant nonhealing ulcer - 2/2 zoonotic bite - Wound culture showing polymicrobial enterococcus and psuedomonas - ID consulted - Known to wound care clinic. Seen last week. - Seen in ED for ulcer pain where she was given clindamycin - Minimal leukocytosis this visit - Clinically stable # Chest pain - Presently asymptomatic - Trop NEG x2 - Echo NEG - Stress test last year NEG - R/o PE: Recent flight from [place] and lab finding of elevated ddimer - Unable to do CTA d/t GIOVANA - Doppler NEG # GIOVANA - Most likely 2/2 dehydration - IVF - Avoid nephrotoxic agents # F/E/N - No standing fluids - Cont. to monitor electrolytes - Low sodium diabetic diet # DVT prophylaxis - Heparin # Disposition - Possible d/c home with po abx if cleared by vascular surgery and ID Papo Baker MD Visit type - Emergency Visit Emergency Visit: No - New Patient This patient is new to me today: No - Critical Care Critical Care patient: No - Discharge Referral Referred to [facility] Med [facility].C[facility] No ATTENDING PHYSICIAN STATEMENT I saw and evaluated the patient. I reviewed the resident's note and discussed the case with the resident. I agree with the resident's findings and plan as documented. SUBJECTIVE: OBJECTIVE: ASSESSMENT AND PLAN:
--- NOTE | 2019-02-16 18:08 | PN ---
Progress Note (short form) - Note Progress Note: Patient followed in Wound care Center for leg edema and left calf ulceration. She was admitted with chest pain. Continue current orders from Wound Care and follow-up after discharge. If new, distinct problem develops during this hospitalization you may recall a consult.
[2019-02-16] MEDS ORDERED: ATORVASTATIN CA 20 MG TABLET (FP) PO SCH (22:00)
[2019-02-17] MEDS: HEPARIN NA (PORCINE) 5,000 UNITS/ML 1ML VIAL SQ SCH (06:07)
[2019-02-17] MEDS: INSULIN SLIDING SCALE (NOVOLOG) 1 VIAL SQ SCH ×2 (06:07→12:04)
[2019-02-17] MEDS: ACETAMINOPHEN 325 MG TABLET (FP) PO PRN (06:08)
[2019-02-17 07:15] LABS: BLOOD UREA NITROGEN 27.2 mg/dL (7-18); CALCIUM 9.3 mg/dL (8.5-10.1); CREATININE 1.1 mg/dL (0.55-1.3); POTASSIUM 3.5 mmol/L (3.5-5.1)
[2019-02-17 07:58] LABS: BASO % 1.3 % (0-2.0); HEMATOCRIT 39.5 % (32.4-45.2); LYMPH % 24.5 % (8-40); MCH 28.7 pg (25.7-33.7); MCHC 32.8 g/dl (32.0-36.0); MEAN CELL VOLUME 87.5 fl (80-96); MEAN PLT VOLUME 10.1 fl (7.5-11.1); MONO % 8.6 % (3.8-10.2); NEUT % 64.6 % (42.8-82.8); PLATELET COUNT 283 K/MM3 (134-434); RBC 4.51 M/mm3 (3.60-5.2); RDW 16.5 % (11.6-15.6); WHITE BLOOD COUNT 10.5 K/mm3 (4.0-10.0)
[2019-02-17 09:03] VITALS: BP 158/88; PULSE 91; TEMP 98.5
[2019-02-17] MEDS: LOSARTAN POTASSIUM 50 MG TABLET (FP) PO SCH (10:45)
[2019-02-17] MEDS: PREGABALIN 25 MG CAPSULE PO SCH (10:45)
[2019-02-17] MEDS: HYDROCHLOROTHIAZIDE 25 MG TABLET (FP) PO SCH (10:45)
[2019-02-17] MEDS: ASPIRIN 81 MG CHEWABLE TABLETS PO SCH (10:45)
--- NOTE | 2019-02-17 11:54 | PN ---
Progress Note (short form) - Note Progress Note: ID CONSULT DICTATED CHRONIC, NON HEALING LEG ULCER + WOUND C/S PSEUDOMONAS/ ENTEROCOCCUS LEVAQUIN 500MG PO QD X 7D OUTPATIENT FOLLOW UP [facility]
--- NOTE | 2019-02-17 12:41 | PN ---
Teaching Attending Note Name of Resident: Papo Baker ATTENDING PHYSICIAN STATEMENT I saw and evaluated the patient. I reviewed the resident's note and discussed the case with the resident. I agree with the resident's findings and plan as documented. SUBJECTIVE:asymptomatic. denies Cp, SOB, fever, chills, n/V/C/D OBJECTIVE: Last Vital Signs Temp Pulse Resp BP Pulse Ox 98.5 F 91 H 18 158/88 96 02/17/19 09:01 02/17/19 09:01 02/17/19 09:01 02/17/19 09:01 02/16/19 21:04 General NAD CV S1 S2 RRR no murmur/rub/gallop Lungs CTA b/l no wheezing/rales/rhonchi Extremities RLE 8cm oblong well demarcated beefy ulcer with green discharge. area is tender some mild swelling ASSESSMENT AND PLAN: 73yo F wtih PMH HTN, DM who is from and came to ER c/o CP and found to have RLE ulcer 1. CP-no repeat episodes. had neg stress lastyear. can f/u with cardio as outpatient for repeat if indicated. 2. GIOVANA- likely dehydration. resolved. avoid nephrotoxic agents 3. Chronic RLE ulcer- evaluated by [facility] surgery adn ID. based on previous cx report (pseudomonas and enterococcus) will treat with levaquin x7 days. will fu in wound care clinic. local wound care instructions per [facility]. 4. d/c home
--- NOTE | 2019-02-17 12:56 | CONS ---
INFECTIOUS DISEASE CONSULTATION DATE OF CONSULTATION: DATE OF DICTATION: 02/17/2019 HISTORY OF PRESENT ILLNESS: The patient is a 73-year-old female who is evaluated for chronic left leg ulcer. History was obtained from the chart, as well as the patient's son who is present at the time of the examination. She was admitted to the hospital on January____2018, with chest pain syndrome. She was admitted to the telemetry unit. She is evaluated for a chronic, non-healing left calf ulcer. According to the son, the ulcer has been present for approximately 1 year. She had sustained a cat bite approximately 1 year ago resulting in a non-healing wound. It became progressively worse. She has been followed in the wound care center and has been receiving hyperbaric oxygen treatments. She denies any worsening of the ulcer. She does complain of pain. No reports of purulent wound drainage. She denies any associated fever or chills. A biopsy was performed of the left leg wound on February 10, 2019. The biopsy returned as marked inflamed granulation tissue with acute inflammatory exudate and fibrin. Cultures of the wound have been positive for pseudomonas and enterococcus, both quinolone sensitive. PAST MEDICAL HISTORY: Positive for hyperlipidemia, hypertension, diabetes mellitus, chronic leg ulcer. ALLERGIES: No known allergies. MEDICATIONS: Include hydrochlorothiazide, losartan, metformin. SOCIAL HISTORY: Lives at home in the community. Former smoker. LABORATORY DATA: White count 10.5, hematocrit 39, platelets 283. BUN 27, creatinine 1.1. liver enzymes normal. Urinalysis: Six white cells. PHYSICAL EXAMINATION: General: On exam, she is awake and alert. She is in no acute distress. Patient is morbidly obese. Vital Signs: Temperature 98.5, blood pressure 158/88, pulse 91 regular, respirations 18 per minute. Heart: Heart sounds S1, S2. Lungs: Clear. Abdomen: Obese. Soft. Nontender. Extremities: On examination of the left lower extremity, there is a large ulceration present over the distal pretibial aspect of the left lower extremity. There is healthy granulation tissue without purulent drainage or foul odor. There is slight surrounding erythema and hyperpigmentation. No lymphangitic streaking. IMPRESSION: 1. Infected, chronic, non-healing leg ulcer. 2. Positive wound culture for pseudomonas and enterococcus. Advise antibiotic therapy with Levaquin 500 mg p.o. daily for 7 days. Outpatient followup in wound care center. Case discussed with patient's son present at the time of the examination. Thank you for the kind referral. KIM HUYNH M.D. [id number]
--- NOTE | 2019-02-17 14:02 | DS ---
Physical Exam: SUBJECTIVE: Patient seen and examined OBJECTIVE: Vital Signs Period Temp Pulse Resp BP Sys/Elliott Pulse Ox Last 24 Hr 98 F-98.5 F 77-91 18-20 139-158/57-89 96-98 PHYSICAL EXAM GENERAL: The patient is awake, alert, and fully oriented, in no acute distress. HEAD: Normal with no signs of trauma. EYES: PERRL, extraocular movements intact, sclera anicteric, conjunctiva clear. ENT: Ears normal, nares patent, oropharynx clear without exudates, moist mucous membranes. NECK: Trachea midline, full range of motion, supple. LUNGS: Breath sounds equal, clear to auscultation bilaterally, no wheezes, no crackles, no accessory muscle use. HEART: Regular rate and rhythm, S1, S2 without murmur, rub or gallop. ABDOMEN: Soft, nontender, nondistended, normoactive bowel sounds, no guarding, no rebound, no hepatosplenomegaly, no masses. EXTREMITIES: 2+ pulses, warm, well-perfused, no edema. NEUROLOGICAL: Cranial nerves II through XII grossly intact. Normal speech, gait not observed. PSYCH: Normal mood, normal affect. SKIN: Warm, dry, normal turgor, no rashes or lesions noted. LABS Laboratory Results - last 24 hr 02/16/19 02/16/19 02/17/19 17:44 21:52 05:08 WBC RBC Hgb Hct MCV MCH MCHC RDW Plt Count MPV Absolute Neuts (auto) Neutrophils % Lymphocytes % Monocytes % Eosinophils % Basophils % Nucleated RBC % Sodium Potassium Chloride Carbon Dioxide Anion Gap BUN Creatinine Est GFR (CKD-EPI)AfAm Est GFR (CKD-EPI)NonAf POC Glucometer 150 193 179 Random Glucose Calcium 02/17/19 02/17/19 02/17/19 06:00 06:05 11:14 WBC 10.5 H RBC 4.51 Hgb 13.0 Hct 39.5 MCV 87.5 MCH 28.7 MCHC 32.8 RDW 16.5 H Plt Count 283 MPV 10.1 Absolute Neuts (auto) 6.8 Neutrophils % 64.6 Lymphocytes % 24.5 Monocytes % 8.6 Eosinophils % 1.0 Basophils % 1.3 Nucleated RBC % 0 Sodium 139 Potassium 3.5 Chloride 101 Carbon Dioxide 29 Anion Gap 9 BUN 27.2 H Creatinine 1.1 Est GFR (CKD-EPI)AfAm 58.09 Est GFR (CKD-EPI)NonAf 50.12 POC Glucometer 223 Random Glucose 183 H Calcium 9.3 HOSPITAL COURSE: Date of Admission:02/16/19 Date of Discharge: 02/17/19 Discharge Summary Reason For Visit: CHEST PAIN Current Active Problems Chest pain (Acute) Condition: Improved - Instructions Diet, Activity, Other Instructions: YOUR VISIT You came to the hospital because you were experiencing chest pain and leg pain. You were admitted to the hospital for care of these symptoms. It was found that your heart was functioning normally. Care of your leg wound was provided and it was recommended that you continue seeing the vascular surgeon. You are stable now and may return home. MEDICATIONS Please continue to take your home medications as prescribed. You have *NEW* mediation. Antibiotic; Levofloxacin 500mg daily for 7 days. ADDITIONAL CARE Please make an appointment to see a primary care provider 1 week from today. If you do not have one, you can call to schedule an appointment at the [facility] residents' clinic, located at [address] [place] [address]. If you would like to continue seeing Dr. Papo Baker, please ask for a Wednesday morning appointment. Follow up with Dr. Alas at wound care clinic within one week after discharge. Follow wound care instructions provided by the wound center ADDITIONAL INFORMATION Please call [phone] or come directly to the emergency department if you experience unusual headache, vision change, shortness of breath, chest pain, numbness, tingling, loss of alertness/awareness, loss of function, unusual bleeding or any alarming symptoms. Referrals: Stuart Zaragoza MD [Staff Physician] - Patrice Alas DO [Staff Physician] - Disposition: HOME - Home Medications Comprehensive Discharge Medication List: Ambulatory Orders Aspirin 81 mg PO DAILY 02/16/19 Glimepiride 4 mg PO BID 02/16/19 Hydrochlorothiazide [Hctz -] 25 mg PO DAILY 02/16/19 Irbesartan 300 mg PO DAILY 02/16/19 Meclizine HCl 25 mg PO TID 02/16/19 Pregabalin [Lyrica -] 25 mg PO BID 02/16/19 Simvastatin 40 mg PO HS 09/19/19 metFORMIN HCL [Metformin HCl] 850 mg PO BID 02/16/19 Levofloxacin [Levaquin] 500 mg PO DAILY 7 Days #7 tablet 02/17/19 levoFLOXacin [Levaquin -] 500 mg PO DAILY #7 tablet 02/17/19 - Discharge Referral Referred to [facility] No ATTENDING PHYSICIAN STATEMENT I saw and evaluated the patient. I reviewed the resident's note and discussed the case with the resident. I agree with the resident's findings and plan as documented. SUBJECTIVE: OBJECTIVE: ASSESSMENT AND PLAN:
== END 2019-02-17 14:27 | disposition home or self-care (01) ==
LOC: JER 14:52 → SUPCPDRO 14:52 → INTOOBSV 22:31 → JERBED 22:31 → UNDOADMOB 22:31 → JERBED 02-16 00:24 → J4W 02-16 02:35
PROVIDERS: ADMIT Internal Medicine; ATTEND Internal Medicine
PROC: 3E013VG Introduction of Insulin into Subcutaneous Tissue, Percutaneous Approach (ICD-10-PCS; principal; 2019-02-16)
PROC: 3E013GC Introduction of Other Therapeutic Substance into Subcutaneous Tissue, Percutaneous Approach (ICD-10-PCS; 2019-02-16)
DX: R07.89 Other chest pain (principal); I10 Essential (primary) hypertension; E78.5 Hyperlipidemia, unspecified; E13.622 Other specified diabetes mellitus with other skin ulcer; L97.228 Non-pressure chronic ulcer of left calf with other specified severity; R79.89 Other specified abnormal findings of blood chemistry; N17.9 Acute kidney failure, unspecified; L03.116 Cellulitis of left lower limb; E66.01 Morbid (severe) obesity due to excess calories; Z68.41 Body mass index [BMI] 40.0-44.9, adult; Z87.891 Personal history of nicotine dependence; Z79.84 Long term (current) use of oral hypoglycemic drugs
CPT/HCPCS: 36415; 71045-TC-FY; 80048; 80053; 81003; 82550; 82962; 83690; 83735; 83880; 84100; 84484; 85025; 85379; 85610; 87070; 87186; 87205; 93005; 93010; 93306-TC; 93970-TC; 96372; 99284-25; G0378; J1644